=== PATIENT | male | born 1985 | race Caucasian/White ===

== ENCOUNTER 2017-11-20 05:22 | Emergency (ER) | payer BC, MEDICAID ==
[~2017-11-20] VITALS: Ht 180.3 cm; Wt 90.0 kg
[2017-11-20] MEDS ORDERED: CefTRIAXone 250MG IM Kit w/LIDOcaine IM ONE (05:35)
[2017-11-20] MEDS ORDERED: azithromycin 250mg tablet PO ONE (05:35)
[2017-11-20 06:09] VITALS: BP 118/64
== END 2017-11-20 06:11 | disposition home or self-care (01) ==
LOC: ER 05:23
DX: A64 Unspecified sexually transmitted disease (principal); R30.0 Dysuria; R36.9 Urethral discharge, unspecified; F17.210 Nicotine dependence, cigarettes, uncomplicated; E11.9 Type 2 diabetes mellitus without complications
CPT/HCPCS: 36415; 87491; 87591; 96372; 99284; J0696